=== PATIENT | female | born 1980 ===

== ENCOUNTER 2024-07-22 15:55 | Emergency (ER) | payer SELFPAY ==
[~2024-07-22] VITALS: Ht 172.7 cm; Wt 150.2 kg
[2024-07-22 16:04] VITALS: TEMP 98.6
[2024-07-22 17:56] LABS: BASOPHILS % (AUTO) 0.3 % (0.0-2.0); EOSINOPHILS % (AUTO) 1.5 % (1.0-6.0); HEMOGLOBIN 8.6 g/dL (12.0-16.0); LYMPHOCYTES # (AUTO) 1.3 K/uL (1.0-4.8); LYMPHOCYTES % (AUTO) 11.2 % (22.0-44.0); MEAN CORPUSCULAR HEMOGLOBIN 19.7 pg (26.0-34.0); MEAN CORPUSCULAR HGB CONC 29.6 G/dL (31.0-37.0); MEAN CORPUSCULAR VOLUME 67 fL (80-100); MONOCYTES # (AUTO) 0.6 K/uL (0.1-1.0); MONOCYTES % (AUTO) 5.6 % (2.0-9.0); NEUTROPHILS # (AUTO) 9.3 K/uL (1.8-7.7); NEUTROPHILS % (AUTO) 81.4 % (40.0-70.0); PLATELET COUNT (AUTO) 456 K/uL (150-450); RED BLOOD CELL COUNT(AUTO) 4.36 MIL/uL (4.00-5.20); RED CELL DISTRIBUTION WIDTH 20.9 % (11.5-14.5); WHITE BLOOD COUNT (AUTO) 11.4 K/uL (4.5-11.0)
[2024-07-22 18:01] LABS: TROPONIN I-HIGH SENSITIVITY 4 ng/L (<51)
[2024-07-22 18:08] LABS: RBC MORPHOLOGY COMMENT ABNORMAL RBC MORPH
[2024-07-22 18:10] LABS: ANION GAP 10 mmol/L (8-16); CALCIUM, TOTAL 8.2 mg/dL (8.8-10.5); CARBON DIOXIDE 24 mmol/L (22-29); CHLORIDE 105 mmol/L (98-107); CREATININE 0.63 mg/dL (0.60-1.30); GLOMERULAR FILTR. RATE CALC > 60 mL/min (>60); GLUCOSE,RANDOM 105 mg/dL (70-110); SODIUM SERUM 139 mmol/L (136-145); UREA NITROGEN, BLOOD 12 mg/dL (7-18)
[2024-07-22 18:16] LABS: ALANINE AMINOTRANSFERASE 14 U/L (12-78); ALBUMIN 3.2 g/dL (3.4-5.0); ALKALINE PHOSPHATASE 80 U/L (46-116); ASPARTATE AMINOTRANSFERASE 11 U/L (15-37); BILIRUBIN,TOTAL 0.2 mg/dL (0.1-1.0); TOTAL PROTEIN, SERUM 7.1 g/dL (6.4-8.2)
[2024-07-22 18:26] LABS: B-TYPE NATRIURETIC PEPTIDE 14 pg/mL (0-100)
[2024-07-22 18:38] VITALS: BP 141/90; PULSE 92; RESP 16; O2SAT 98
== END 2024-07-22 18:51 | disposition home or self-care (01) ==
LOC: EMS 15:55
DX: I95.1 Orthostatic hypotension (principal); D64.9 Anemia, unspecified
CPT/HCPCS: 71045; 80053; 83880; 84484; 84703; 85025; 93005; 99285; 36415-L1; 36415-TC